=== PATIENT | female | born 1960 ===

== ENCOUNTER 2018-12-30 15:14 | Outpatient (CLI) | payer MEDICARE, MEDICAID ==
[2018-12-30] MEDS ORDERED: ISOVUE-370 76%-LOCM 1 ML ONE (15:44)
--- NOTE | 2018-12-30 16:11 | CT ---
Exam: Postcontrast soft tissue neck CT HISTORY: Left parotid mass. COMPARISON: None FINDINGS: Visualized brain unremarkable Bilateral orbits are unremarkable Adequate aeration of the visualized mastoid air cells. There is hyperdensity and opacification of the left sphenoid sinus. Aerodigestive tract is patent. No mucosal abnormality. Midline fatty raphae of the tongue is preserve d. Epiglottis is normal caliber. Preepiglottic fat is preserved. Symmetric attenuation of the parotid and mandibular glands Symmetric attenuation of the sternocleidomastoid muscles. No evidence of lymphadenopathy by size criteria. Grossly the great vessels of the neck are patent. Cervical spine vertebral body height is maintained. No fracture. Anterolisthesis of C4 upon C5 (2 mm) is likely due to degenerative changes of the left facet. There are varying degrees of central canal stenosis and neural foraminal narrowing due to degenerative change. There is severe left forami nal narrowing at C4-C5. Hypodensity in the left and right thyroid lobe, incompletely evaluated. There are calcifications in t he right thyroid lobe. Upper mediastinum is unremarkable. Chronic changes in the lung apices. At the level of palpable marker, there are no solid or cystic masses. There is no evidence of a mass with regards to the left parotid gland. No evidence of a left preauricular postauricular mass. IMPRESSION: 1. No abnormal mass is noted at the level of palpable marker. 2. Incompletely evaluated thyroid gland with evidence of hypodensities and calcifications. Nonemergen t thyroid ultrasound. 3. Left sphenoid sinus disease.
== END 2018-12-30 15:15 | disposition home or self-care (01) ==
LOC: BICCT 15:14
PROVIDERS: ATTEND Specialist
DX: K11.8 Other diseases of salivary glands (principal); E07.9 Disorder of thyroid, unspecified; J32.3 Chronic sphenoidal sinusitis
CPT/HCPCS: 70491; 77063; 77067; 82565